=== PATIENT | female | born 1965 | race African-American/Black ===

== ENCOUNTER 2018-07-13 18:54 | Emergency (ER) | payer MEDICARE, OTHER ==
[~2018-07-13] VITALS: Ht 170.2 cm; Wt 107.0 kg
[2018-07-13 19:40] VITALS: BP 152/74
[2018-07-13] MEDS ORDERED: ceFAZolin 1gm/50ml Premix 50 ML IV ONE (20:15)
[2018-07-13] MEDS ORDERED: CEPHALEXIN500 MG ORAL (20:17)
[2018-07-13] MEDS ORDERED: DOXYCYCLINE MO100 MG ORAL (20:17)
--- NOTE | 2018-07-13 20:17 | Emergency Room Report ---
History of Present Illness General Chief Complaint: Skin Rash/Abscess Source: Patient Present Illness HPI 53-year-old female presenting with spider bite to right arm. States that it bit her yesterday. Has gotten more swollen and red. Itchy. No fever no chills. Not diabetic Allergies: Coded Allergies: No Known Allergies (Unverified , 07/13/18) Patient History Past Medical History: see triage record Past Surgical History: none Pertinent Family History: none Last Menstrual Period: 06/2016 Reviewed Nursing Documentation: PMH: Agreed; PSxH: Agreed Nursing Documentation-PMH Past Medical History: No History, Except For Hx Cardiac Problems: No Hx Hypertension: No Hx Pacemaker: No Hx Asthma: No Hx COPD: No Hx Diabetes: No Hx Cancer: No Hx Gastrointestinal Problems: No Hx Dialysis: No History Of Psychiatric Problem: Yes - Anxiety Hx Neurological Problems: No Hx Cerebrovascular Accident: No Hx Seizures: Yes Review of Systems All Other Systems: negative except mentioned in HPI Physical Exam Vital Signs Date Time Temp Pulse Resp B/P (MAP) Pulse Ox O2 Delivery O2 Flow Rate FiO2 07/13/18 19:04 98.2 70 14 165/73 97 Room Air Sp02 EP Interpretation: reviewed, normal General Appearance: alert, GCS 15, non-toxic, mild distress Head: normocephalic, atraumatic Eyes: bilateral eye normal inspection, bilateral eye PERRL, bilateral eye EOMI ENT: normal ENT inspection, normal pharynx, normal voice, moist mucus membranes Neck: normal inspection, full range of motion, supple Respiratory: normal inspection, lungs clear, normal breath sounds, no respiratory distress, no retraction, no wheezing, speaking full sentences, chest symmetrical Cardiovascular #1: normal inspection, regular rate, rhythm, no edema, normal capillary refill Cardiovascular #2: 2+ radial (R), 2+ radial (L) Gastrointestinal: normal inspection, non tender, soft, non-distended, no guarding Musculoskeletal: other - Spider bite to right forearm, area of erythema surrounding with edema, about 6 x 6 an centimeters, tender palpation, no crepitus Neurologic: normal inspection, alert, oriented x3, responsive, motor strength/ tone normal, sensory intact, normal gait, speech normal Psychiatric: normal inspection, judgement/insight normal, memory normal Skin: normal inspection, normal color, no rash, warm/dry, well hydrated, normal turgor Medical Decision Making Diagnostic Impression: Primary Impression: Spider bite Additional Impression: Cellulitis ER Course 53-year-old female with redness/swelling and spider bite to right forearm for 2 days DDX: Cellulitis spider bite No crepitus / pain out of proportion / rapid spreading for concern for nec fasc Plan: Labs and Antibiotics anticipate discharge as patient appears well ER course: Patient received antibiotics for cellulitis. Remains nontoxic appearing. There has been no rapid spread of redness/swelling. Disposition: Patient is to be discharged to home on PO antibiotics. Strict precautions discussed with patients on when to return to the ED including fevers, chills, rapid spread of rash, persistent rash, extreme pain to extremity, which may indicate severe illness. Patient verbalizes understanding. Patient is instructed to follow up with primary care doctor OR come back to the ED in 48 hours for wound check. Patient agrees with plan. Please note that this Emergency Department Report was dictated using [employer] for puller over hand technology software, occasionally this can lead to erroneous entry secondary to interpretation by the dictation equipment. EKG Diagnostic Results EP Interpretation: Yes Rate: normal Rhythm: NSR ST Segments: No acute changes ASA given to patient: No Laboratory Tests Test 07/13/18 20:55 White Blood Count 5.4 K/UL (4.8-10.8) Red Blood Count 4.61 M/UL (4.20-5.40) Hemoglobin 14.0 G/DL (12.0-16.0) Hematocrit 40.9 % (37.0-47.0) Mean Corpuscular Volume 89 FL (80-99) Mean Corpuscular Hemoglobin 30.3 PG (27.0-31.0) Mean Corpuscular Hemoglobin Concent 34.1 G/DL (32.0-36.0) Red Cell Distribution Width 11.3 % (11.6-14.8) L Platelet Count 320 K/UL (150-450) Mean Platelet Volume 5.7 FL (6.5-10.1) L Neutrophils (%) (Auto) 57.7 % (45.0-75.0) Lymphocytes (%) (Auto) 32.6 % (20.0-45.0) Monocytes (%) (Auto) 6.0 % (1.0-10.0) Eosinophils (%) (Auto) 1.7 % (0.0-3.0) Basophils (%) (Auto) 2.0 % (0.0-2.0) Urine Color Pale yellow Urine Appearance Clear Urine pH 5 (4.5-8.0) Urine Specific [place] 1.025 (1.005-1.035) Urine Protein 1+ (NEGATIVE) H Urine Glucose (UA) Negative (NEGATIVE) Urine Ketones Negative (NEGATIVE) Urine Blood 1+ (NEGATIVE) H Urine Nitrite Negative (NEGATIVE) Urine Bilirubin Negative (NEGATIVE) Urine Urobilinogen Normal MG/DL (0.0-1.0) Urine Leukocyte Esterase 2+ (NEGATIVE) H Urine RBC Pending Urine WBC Pending Urine Squamous Epithelial Cells Pending Urine Bacteria Pending Sodium Level 142 MMOL/L (136-145) Potassium Level 3.6 MMOL/L (3.5-5.1) Chloride Level 105 MMOL/L (98-107) Carbon Dioxide Level 31 MMOL/L (21-32) Anion Gap 6 mmol/L (5-15) Blood Urea Nitrogen 14 mg/dL (7-18) Creatinine 0.8 MG/DL (0.55-1.30) Estimate Glomerular Filtration Rate > 60 mL/min (>60) Glucose Level 92 MG/DL (74-106) Lactic Acid Level Pending Calcium Level 9.5 MG/DL (8.5-10.1) Total Bilirubin 0.3 MG/DL (0.2-1.0) Aspartate Amino Transferase (AST) 13 U/L (15-37) L Alanine Aminotransferase (ALT) 15 U/L (12-78) Alkaline Phosphatase 76 U/L (46-116) Total Creatine Kinase 134 U/L (26-308) Troponin I Pending Total Protein 9.0 G/DL (6.4-8.2) H Albumin 3.9 G/DL (3.4-5.0) Globulin 5.1 g/dL Albumin/Globulin Ratio 0.8 (1.0-2.7) L Last Vital Signs Date Time Temp Pulse Resp B/P (MAP) Pulse Ox O2 Delivery O2 Flow Rate FiO2 07/13/18 19:04 98.2 70 14 165/73 97 Room Air Disposition: HOME, SELF-CARE Condition: Improved Scripts Doxycycline Monohydrate* (DOXYCYCLINE MONOHYDRATE*) 100 Mg Capsule 100 MG ORAL Q12H for 7 Days, #14 CAP 0 Refills Prov: Retino,Clairose M.D. 07/13/18 Cephalexin* (KEFLEX*) 500 Mg Capsule 500 MG ORAL EVERY 6 HOURS for 7 Days, #28 CAP Prov: Jose Del Toro M.D. 07/13/18 Jose Del Toro M.D. Jul 13, 2018 20:17
[2018-07-13] MEDS ORDERED: TYLENOL EXTRA500 MG ORAL (20:21)
[2018-07-13] MEDS ORDERED: KEPPRA750 MG ORAL (20:21)
[2018-07-13] MEDS ORDERED: TRILEPTAL600 MG PO (20:21)
[2018-07-13] MEDS ORDERED: Doxycycline Hyclate 100 MG in D5W 110 ML IVPB ONE (21:00)
[2018-07-13 21:33] LABS: EOSINOPHILS % (AUTO) 1.7 % (0.0-3.0); HEMATOCRIT 40.9 % (37.0-47.0); LYMPHOCYTES % (AUTO) 32.6 % (20.0-45.0); MEAN CORPUSCULAR VOLUME 89 FL (80-99); NEUTROPHILS % (AUTO) 57.7 % (45.0-75.0); PLATELET COUNT 320 K/UL (150-450); RED BLOOD COUNT 4.61 M/UL (4.20-5.40); RED CELL DISTRIBUTION WIDTH 11.3 % (11.6-14.8); WHITE BLOOD COUNT 5.4 K/UL (4.8-10.8)
[2018-07-13 21:34] LABS: APPEARANCE,URINE CLEAR; BILIRUBIN, URINE NEGATIVE (NEGATIVE); COLOR,URINE PALE YELLOW; GLUCOSE, URINE (UA) NEGATIVE (NEGATIVE); KETONES,URINE NEGATIVE (NEGATIVE); LEUKOCYTE ESTERASE ,URINE 2+ (NEGATIVE); NITRITE,URINE NEGATIVE (NEGATIVE); PH,URINE 5 (4.5-8.0); PROTEIN,URINE 1+ (NEGATIVE); UROBILINOGEN,URINE NORMAL MG/DL (0.0-1.0)
[2018-07-13 21:40] VITALS: BP 148/72
[2018-07-13 21:45] LABS: ANION GAP 6 mmol/L (5-15); BLOOD UREA NITROGEN 14 mg/dL (7-18); CALCIUM 9.5 MG/DL (8.5-10.1); CARBON DIOXIDE 31 MMOL/L (21-32); CHLORIDE 105 MMOL/L (98-107); CREATININE 0.8 MG/DL (0.55-1.30); POTASSIUM 3.6 MMOL/L (3.5-5.1); SODIUM 142 MMOL/L (136-145)
[2018-07-13 21:49] LABS: ALANINE AMINOTRANSFERASE 15 U/L (12-78); ALBUMIN 3.9 G/DL (3.4-5.0); ALBUMIN/GLOBULIN RATIO 0.8 (1.0-2.7); ALKALINE PHOSPHATASE 76 U/L (46-116); ASPARTATE AMINO TRANSFERASE 13 U/L (15-37); BILIRUBIN,TOTAL 0.3 MG/DL (0.2-1.0); CREATINE KINASE 134 U/L (26-308)
[2018-07-13 21:50] VITALS: BP 148/72
--- NOTE | 2018-07-14 12:09 | Diagnostic Imaging Report ---
Indication: Chest pain Technique: One view of the chest Comparison: none Findings: Body habitus somewhat limits evaluation. The lungs and pleural spaces are clear. The heart is borderline enlarged. Impression: Borderline cardiomegaly No acute process
--- NOTE | 2018-07-15 16:36 | Cardiology Report ---
APPROVED REPORT EKG Measurement Heart [id number] Normal sinus rhythm Normal ECG
== END 2018-07-13 21:50 | disposition home or self-care (01) ==
LOC: EMR 20:08 → CANBEDREQ 20:34 → EMR 21:50
DX: T63.301A Toxic effect of unspecified spider venom, accidental (unintentional), initial encounter (principal); L03.113 Cellulitis of right upper limb; Y92.89 Other specified places as the place of occurrence of the external cause; F41.9 Anxiety disorder, unspecified; G40.909 Epilepsy, unspecified, not intractable, without status epilepticus
CPT/HCPCS: 36415; 71045; 80053; 81003; 82550; 83605; 84484; 85025; 87040; 87086; 93005; 96365; 96368; 99284; J0690; J3490